=== PATIENT | female | born 1940 | race Caucasian/White ===

== ENCOUNTER 2019-10-11 06:38 | Inpatient (IN) | payer OTHER ==
[2019-10-04 10:51] LABS: PROTIME 10.1 Seconds (9.20-11.50)
[2019-10-04 11:06] LABS: URINE BILIRUBIN NEGATIVE (Negative); URINE BLOOD NEGATIVE (Negative); URINE CLARITY CLEAR; URINE COLOR YELLOW; URINE GLUCOSE-RANDOM NEGATIVE (Negative); URINE KETONES NEGATIVE (Negative); URINE LEUKOCYTES-REFLEX TRACE (Negative); URINE NITRITE-REFLEX NEGATIVE (Negative); URINE PROTEIN NEGATIVE (Negative); URINE UROBILINOGEN 0.2 E.U./dl (0.2-1.0)
[2019-10-04 11:15] LABS: BACTERIA-REFLEX 1-9 Few /HPF (None Seen); CASTS None Seen /LPF (None Seen); CRYSTALS None Seen /LPF (None Seen); MUCUS None Seen strn/LPF (None Seen); SQUAMOUS 4-10 Moderate /LPF (0-3); TRANSITIONAL EPITHEL CELL 0-3 Few /LPF (None Seen); URINE RBC 0-2 Rare /HPF (0-2); URINE WBC-REFLEX 0-5 Rare /HPF (0-5)
[~2019-10-11] VITALS: Ht 154.9 cm; Wt 77.1 kg
[~2019-10-11 06:38] MED LIST: ADULT LOW DOSE81 MG PO; CALCIUM 500 +1 EAC5 PO; CLONAZEPAM 1 MG1 M1 PO; DILTIAZEM ER180 M1 PO; FISHOIL PO; FLONASE 0.05%50 MCG NARES; GABAPENTIN100 MG PO; IRON325 M1 PO; ISOSORBIDE MONO10 MG PO; LEVO-T75 MCG PO; METOPROLOL PO; METOPROLOL SUCC50 MG PO; MYRBETRIQ50 MG PO; NITROGLYCERIN0.4 MG SUBLING; PREMARIN0.625 MG PO; PREVACID15 MG PO; PROAIR RESPICL90 MCG INH; PROTONIX40 M1 PO; PROZAC20 M1 PO; SINGULAIR 10 MG10 M1 PO; SYMBICORT160 MCG/4. INH; TESSALON PERLE100 MG PO; VENTOLIN HFA 1818 GM INH; VITAMIN B122500 MCG PO; ZETIA10 MG PO
[2019-10-11 08:45] VITALS: BP 109/64
[2019-10-11 14:12] VITALS: BP 110/55
[2019-10-11 16:00] VITALS: BP 100/75
[2019-10-11 20:00] VITALS: BP 104/68
[2019-10-12] VITALS (7 sets, daily range): BP systolic 96–132; BP diastolic 47–93
[2019-10-12 07:05] LABS: HEMOGLOBIN 12.1 gm/dL (12.0-15.0)
--- NOTE | 2019-10-12 22:32 | OP ---
[facility] [address] [place] [address] OPERATIVE REPORT Name: KARENMONROE L Room: [address] M.R.#: [id number] Admission: 10/11/19 Attend Phys: Tanvir Velazquez Discharge: Date of : 42 Report #: [id number] THIS REPORT FOR: //name// cc: Peri Biggs MD, Pamela MD ~ THIS REPORT FOR: //name// CC: Peri Mathur DATE OF SERVICE: 10/11/2019 PREOPERATIVE DIAGNOSIS: Right knee osteoarthritis. POSTOPERATIVE DIAGNOSIS: Right knee osteoarthritis. PROCEDURE: Right total knee arthroplasty with NAVIO. ANESTHESIA: General endotracheal. ESTIMATED BLOOD LOSS: 50 mL. ANTIBIOTICS: Ancef preoperatively. DRAINS: Medium Hemovac. COMPLICATIONS: None. CONDITION OF THE PATIENT: Stable to recovery room. IMPLANTS: Listed in operative record and progress note. BRIEF HISTORY: The patient is seen in the preoperative area. Preoperative H and P was performed. Site was marked, questions were answered. Risks and benefits were discussed with the patient in detail about surgery. The patient wished to proceed, assuming all risks. DESCRIPTION OF PROCEDURE: The patient was taken to the operative suite and placed supine on the operating table, given appropriate anesthesia. A well-padded tourniquet applied to upper thigh, which was inflated to 300 mmHg after gravity exsanguination. The operative knee was sterilely prepped and draped. Surgery began by midline incision. This was carried down to the subcutaneous tissues. A medial parapatellar arthrotomy was performed and carried down to bone. Patella was then everted and excess soft tissue was removed from around the femur. Osteophytes were also removed from around the [place] [id number] OPERATIVE REPORT Name: MONROE JONES Room: [address] IN [facility]#: [id number] Admission: 10/11/19 Attend Phys: Tanvir Velazquez Discharge: Date of : 42 Report #: [id number] femur and tibia. Establishing the [email or web address] robotic handpiece, the retractors were placed along the tibia and femur in appropriate fashion. The knee was then registered through the [email or web address] software. Robotic handpiece was then activated and the femoral cutting block holes were then made in the femur and the tibial cutting block holes were made in the tibia. Femoral cutting block was then applied, checked for rotational alignment with the robotic handpiece. This was pinned in appropriate position and distal cut was made. The 4-in-1 cutting block was then applied and appropriate cuts were made. Attention was then turned to the tibia. Excess meniscus was removed. Retractor was placed on collateral ligaments. Tibial cutting block was then applied, checked with the NAVIO handpiece for appropriate alignment, pinned in appropriate position and appropriate cuts were made. Tibial bone was removed. The tibial base plate was then applied, checked for rotational alignment with the drop enrrique and pinned in appropriate position. Femur was then applied and box cut was reamed. This was then trialed with appropriate spacer, which showed excellent fit and fill and excellent stability of the knee through all range of motion. This was visualized with the robotic software to be excellent flexion, extension and excellent stability on medial and lateral testing. The patella was then reamed in appropriate fashion and sized to appropriate size. Three peg holes were drilled and it was then trialed and showed excellent flexion incision, excellent tracking of the patella within the groove. These trials were then removed. The tibia was punched in appropriate fashion. Bone ends were cleansed with Pulsavac irrigation and cement was mixed and applied to final implants. These were then malleted into position and held the knee in extension and compressed to allow cement to cure. After it cured, excess was removed using a [place] and osteotome. Wound was then copiously irrigated and the final spacer was then malleted into position. Tourniquet was deflated. Hemostasis was obtained with electrocautery. Pain cocktail was injected. PRP gel sprayed throughout internal aspects of the knee. Medium Hemovac drain was applied. The pins were then removed as well as trackers from the knee. The capsule was then closed with #2 FiberWire and 1-0 Vicryl in [id number] fashion. Skin was closed with 2-0 Vicryl and running 3-0 Monocryl. Dermabond and sterile dressing applied. Shimon wrap and PolarCare applied. The patient transported to recovery room in stable condition. Counts were correct throughout the procedure. <ELECTRONICALLY SIGNED> By: Gerry Gill II, DO 10/12/192231 [id number] Gill II, DO /nt
[2019-10-13 03:57] VITALS: BP 118/42
[2019-10-13 08:19] LABS: HEMATOCRIT 32.4 % (37.0-47.0); HEMOGLOBIN 10.8 gm/dL (12.0-15.0)
[2019-10-13 08:35] VITALS: BP 118/55
[2019-10-13 15:45] VITALS: BP 137/74
[2019-10-13 20:00] VITALS: BP 131/66
[2019-10-14] VITALS: BP 114/75
[2019-10-14 04:00] VITALS: BP 106/61
[2019-10-14 08:00] VITALS: BP 127/69
[2019-10-14] MEDS ORDERED: XARELTO10 MG PO (09:50)
[2019-10-14] MEDS ORDERED: HYDROCODON-ACE1 EAC7 PO (09:50)
[2019-10-14] MEDS ORDERED: CELEBREX 200 M200 M1 PO (09:50)
[2019-10-14] MEDS ORDERED: LIDOPATCH1 EACH TOP (09:50)
[2019-10-14 11:29] VITALS: BP 127/69
[2019-10-14 11:36] VITALS: BP 127/69
[2019-10-14 11:44] VITALS: BP 127/69
== END 2019-10-14 14:30 | disposition home health service (06) | DRG 470 ==
LOC: M.PRE 06:38 → M.TBA 06:50 → M.PRE 07:20 → M.3W 13:28 → M.PRE 16:07 → M.3W 10-14 14:30
PROVIDERS: Orthopaedic Surgery; ADMIT Internal Medicine
DX: M17.11 Unilateral primary osteoarthritis, right knee (principal); I25.10 Atherosclerotic heart disease of native coronary artery without angina pectoris; E78.00 Pure hypercholesterolemia, unspecified; E03.9 Hypothyroidism, unspecified; G25.81 Restless legs syndrome; E78.5 Hyperlipidemia, unspecified; Z85.118 Personal history of other malignant neoplasm of bronchus and lung; Z88.2 Allergy status to sulfonamides; Z88.8 Allergy status to other drugs, medicaments and biological substances; Z88.6 Allergy status to analgesic agent; Z91.041 Radiographic dye allergy status; Z90.710 Acquired absence of both cervix and uterus; Z87.891 Personal history of nicotine dependence; Z79.82 Long term (current) use of aspirin; Z79.899 Other long term (current) drug therapy; Z03.818 Encounter for observation for suspected exposure to other biological agents ruled out